=== PATIENT | male | born 1990 | race Caucasian/White ===

== ENCOUNTER 2018-02-15 08:58 | Emergency (ER) | payer OTHER ==
[~2018-02-15] VITALS: Ht 185.4 cm; Wt 89.8 kg
[~2018-02-15 08:58] MED LIST: NORCO 5-325 TA1 EACH PO; PREDNISONE 20 M20 M1 PO
[2018-02-15] MEDS ORDERED: KEFLEX500 M1 PO (10:22)
[2018-02-15 11:06] VITALS: BP 131/87
== END 2018-02-15 11:10 | disposition home or self-care (01) ==
LOC: ER 08:58
DX: S61.412A Laceration without foreign body of left hand, initial encounter (principal); S61.411A Laceration without foreign body of right hand, initial encounter; F17.210 Nicotine dependence, cigarettes, uncomplicated; W26.9XXA Contact with unspecified sharp object(s), initial encounter; Y93.89 Activity, other specified; Y92.89 Other specified places as the place of occurrence of the external cause; Y99.8 Other external cause status